=== PATIENT | female | born 1935 | race Caucasian/White ===

== ENCOUNTER 2022-06-17 01:21 | Emergency (ER) | payer MEDICARE ==
[~2022-06-17] VITALS: Ht 170.2 cm; Wt 45.4 kg
[2022-06-17 01:39] LABS: BASOPHILS % (AUTO) 0.2 % (0.0-5.0); EOSINOPHILS % (AUTO) 0.4 % (0.0-8.0); HEMATOCRIT 40.5 % (36-48); LYMPHOCYTES % (AUTO) 6.3 % (21.0-51.0); MEAN CORPUSCULAR HEMOGLOBIN 31.5 pg (27.0-33.0); MEAN CORPUSCULAR HGB CONC 33.3 g/dL (32.0-36.0); MEAN CORPUSCULAR VOLUME 94.6 fL (79-99); NEUTROPHILS % (AUTO) 86.1 % (40.0-77.0); PLATELET COUNT (AUTO) 191 K/uL (130-400); RED BLOOD CELL COUNT(AUTO) 4.28 MIL/uL (4.00-5.50); WHITE BLOOD COUNT (AUTO) 13.4 K/uL (4.8-10.8)
[2022-06-17 01:48] LABS: CREATININE 0.6 mg/dL (0.5-1.5); POTASSIUM 4.3 mmol/L (3.5-5.1)
[2022-06-17 01:52] LABS: TOTAL PROTEIN, SERUM 6.4 g/dL (6.0-8.3)
[2022-06-17] MEDS ORDERED: SOLU-MEDROL 125MG VIAL IVP ONE (04:30)
[2022-06-17] MEDS ORDERED: PRED20TA3 PO (04:31)
[2022-06-17 05:35] VITALS: BP 156/83
== END 2022-06-17 04:37 | disposition home or self-care (01) ==
LOC: EDH 01:21
DX: J44.1 Chronic obstructive pulmonary disease with (acute) exacerbation (principal); I10 Essential (primary) hypertension; Z20.822 Contact with and (suspected) exposure to COVID-19
CPT/HCPCS: 99285; 96374; 71045; 87635; 84484; 80053; 85025; 87804 ×2; 36415; 93005; C9803; J2930

== ENCOUNTER 2022-10-11 23:21 | Emergency (ER) | payer MEDICARE ==
[~2022-10-11] VITALS: Ht 167.6 cm; Wt 45.4 kg
[~2022-10-11 23:21] MED LIST: PRED20TA3 PO
[2022-10-12 00:45] LABS: BASOPHILS % (AUTO) 0.1 % (0.0-5.0); EOSINOPHILS % (AUTO) 0.7 % (0.0-8.0); HEMATOCRIT 37.9 % (36-48); LYMPHOCYTES % (AUTO) 10.1 % (21.0-51.0); MEAN CORPUSCULAR HEMOGLOBIN 31.6 pg (27.0-33.0); MEAN CORPUSCULAR HGB CONC 32.2 g/dL (32.0-36.0); MEAN CORPUSCULAR VOLUME 98.2 fL (79-99); MONOCYTES % (AUTO) 8.7 % (3.0-13.0); NEUTROPHILS % (AUTO) 79.4 % (40.0-77.0); PLATELET COUNT (AUTO) 187 K/uL (130-400); RED BLOOD CELL COUNT(AUTO) 3.86 MIL/uL (4.00-5.50); RED CELL DISTRIBUTION WIDTH 15.6 % (11.0-15.5); WHITE BLOOD COUNT (AUTO) 9.8 K/uL (4.8-10.8)
[2022-10-12 01:01] LABS: CREATININE 0.5 mg/dL (0.5-1.5); POTASSIUM 4.1 mmol/L (3.5-5.1); PROTHROMBIN TIME 10.9 SEC (9.6-11.6)
[2022-10-12 01:02] LABS: PARTIAL THROMBOPLASTIN TIME 26.5 SEC (26.3-35.5)
[2022-10-12 01:06] LABS: ALBUMIN 2.6 g/dL (3.5-5.0); TOTAL PROTEIN, SERUM 5.7 g/dL (6.0-8.3)
[2022-10-12] MEDS ORDERED: AZITHROMYCIN 250 MG TABLET PO ONE (04:00)
[2022-10-12] MEDS ORDERED: CEFTRIAXONE 1G VIAL IVPB ONE (04:00)
[2022-10-12] MEDS ORDERED: SOLU-MEDROL 125MG VIAL IVP ONE (04:00)
[2022-10-12 04:13] LABS: INR 0.99 (0.85-1.15); PROTHROMBIN TIME 10.8 SEC (9.6-11.6)
[2022-10-12 04:14] LABS: PARTIAL THROMBOPLASTIN TIME 22.2 SEC (26.3-35.5)
[2022-10-12 04:39] VITALS: BP 142/84
== END 2022-10-12 06:20 | disposition home or self-care (01) ==
LOC: EDH 23:21
DX: J96.10 Chronic respiratory failure, unspecified whether with hypoxia or hypercapnia (principal); J43.9 Emphysema, unspecified; I10 Essential (primary) hypertension
CPT/HCPCS: 99285; 71045; 82550; 84484 ×2; 80053; 85025; 85610 ×2; 85730 ×2; 87040 ×2; 87077; 87186; 83605 ×2; 36415; 93005; 96374; 96375; J2930; J0696